=== PATIENT | female | born 1985 | race Hispanic/Latino ===

== ENCOUNTER 2016-10-31 10:02 | Inpatient (IN) ==
[2016-10-31 10:24] LABS: URINE CULTURE PL NEEDED? NO
[2016-10-31 10:31] LABS: BILIRUBIN URINE NEGATIVE (NEGATIVE); BLOOD URINE NEGATIVE (NEGATIVE); CLARITY CLEAR (CLEAR); COLOR YELLOW; GLUCOSE URINE NEGATIVE (NEGATIVE); LEUKOCYTES URINE NEGATIVE (NEGATIVE); NITRITE URINE NEGATIVE (NEGATIVE); PH URINE 6.5; PROTEIN URINE NEGATIVE (NEGATIVE); UROBILINOGEN URINE NORMAL
[2016-10-31 10:36] LABS: URINE EPITHELIAL CELLS >10 /HPF (<10); URINE SOURCE CLEAN CATCH; URINE WBC <10 /HPF (<10)
[2016-10-31] MEDS ORDERED: MORPHINE IV ONE (10:51)
[2016-10-31] MEDS ORDERED: ZOFRAN IV ONE (10:51)
[2016-10-31] MEDS ORDERED: NS 1,000 ML IV ONE (10:51)
[2016-10-31] MEDS ORDERED: DILAUDID IM ONE (10:57)
[2016-10-31] MEDS ORDERED: DILAUDID ONE (10:58)
--- NOTE | 2016-10-31 11:25 | Diag Imaging Result Doc PS360 ---
EXAM: CT RENAL STONE SEARCH - 10/31/2016 HISTORY: Abd pain TECHNIQUE: Dose reduction protocol COMPARISON: None. FINDINGS: There is no substantial hydronephrosis or perinephric edema identified. There is no renal stone identified. The bilateral renal contours are mildly lobulated which likely relates to normal variation. There is no evidence of bowel obstruction. What appears to represent the appendix has air in the lumen and shows no evidence of inflammation. There is a moderate amount retained fecal debris in the right colon. There is no free air. There are no calcified gallstones seen. There are bilateral L5 pars interarticularis defects noted. There is no associated spondylolisthesis. IMPRESSION: No evidence of renal stone or hydronephrosis. Apparent constipation noted. Bilateral L5 pars interarticularis defects also noted. Electronically signed by Se Villavicencio 10/31/2016 11:23 AM
--- NOTE | 2016-10-31 11:43 | Diag Imaging Result Doc PS360 ---
EXAM: LUMBAR SPINE - 10/31/2016 HISTORY: LBP TECHNIQUE: Lumbar spine six views COMPARISON: None. FINDINGS: There are pars interarticularis defects at L5 which are most conspicuous in the lateral projection, as seen on the CT renal stone search. There is no associated spondylolisthesis. There is no fracture or subluxation identified. There is no destructive or sclerotic lesion identified. Substantial degenerative changes do not appear to be present. There is a moderate amount retained fecal debris noted in the visualized right colon. IMPRESSION: L5 pars interarticularis defects. No associated spondylolisthesis. No other visible lumbar spine abnormality. Apparent constipation noted. Electronically signed by Se Villavicencio 10/31/2016 11:41 AM
[2016-10-31 12:05] LABS: HEMATOCRIT 20.8 % (37.0-47.0); IMM GRAN# 0.01 X1000 (0.0-0.04); IMM GRAN% 1.5 % (0.0-0.5); LYMPH# 0.56 X1000 (1.2-3.4); LYMPH% 86.2 % (20.5-51.1); MANUAL DIFF NEEDED? YES; MCH 25.6 PG (27-31); MCHC 33.7 g/dL (33-37); MCV 76.2 FL (81-99); MONO# 0.03 X1000 (0.11-0.59); MONO% 4.6 % (1.7-9.3); MPV 10.6 FL (7.4-10.4); NEUT% 7.7 % (42.2-75.2); PLT 88 X1000 (130-400); RBC 2.73 XMIL (4.2-5.4)
[2016-10-31 12:18] LABS: AGAP 12; ALKALINE PHOSPHATASE 102 U/L (32-104); AMYLASE 30 U/L (20-200); BUN 19 mg/dL (8-22); CALCIUM 8.3 mg/dL (8.8-10.2); CHLORIDE 102 mmol/L (98-107); COSMO 274; GOT 29 U/L (10-30); GPT 27 U/L (10-36); LIPASE 15 U/L (13-60); LYMPHS 94 % (21-51); POTASSIUM 3.4 mmol/L (3.5-5.1); SODIUM 136 mmol/L (136-145); TCO2 23 mmol/L (25-35); TOTAL PROTEIN 6.8 g/dL (6.3-8.3)
[2016-10-31 12:19] LABS: HYPOCHROM 2+
[2016-10-31 13:38] LABS: HEMATOCRIT 20.1 % (37.0-47.0); HEMOGLOBIN 6.7 g/dL (12.0-16.0); IMM GRAN# 0.02 X1000 (0.0-0.04); IMM GRAN% 3.4 % (0.0-0.5); LYMPH# 0.52 X1000 (1.2-3.4); LYMPH% 88.1 % (20.5-51.1); MANUAL DIFF NEEDED? NO; MCH 25.6 PG (27-31); MCHC 33.3 g/dL (33-37); MCV 76.7 FL (81-99); MONO# 0.02 X1000 (0.11-0.59); MONO% 3.4 % (1.7-9.3); MPV 11.3 FL (7.4-10.4); NEUT% 5.1 % (42.2-75.2); PLT 87 X1000 (130-400); RBC 2.62 XMIL (4.2-5.4)
--- NOTE | 2016-10-31 13:47 | PROVIDER DOCUMENTATION ---
This chart was entered by Marichuy Negron Scribe, acting as scribe for Cassandra Chavez MD. HPI-Musculoskeletal Pain/Inj - GENERAL Chief Complaint: Back Pain Stated Complaint: ABD CRAMPS Time Seen by Provider: 10/31/16 10:40 Source: patient - HX OF PRESENT ILLNESS-MUSKULOSKELTAL Nature of Presenting Problem: Patient is 31 year old female presents to the ED with low back pain. Patient states pain has been present for one month. Patient states pain worsened today. Patient denies recent injury or trauma to back. Patient states back pain radiates to bilateral legs. Quality of Pain: reports: aching Severity in ED: moderate Onset/Duration: other (1 mth) Timing: still present, getting worse Modifying Factors: improves with: nothing Any recent injury?: No Locality of Occurance: Home Similar Symptoms Previously?: Yes (present for one mth ) Recently seen or treated by another doctor?: No - BACK & NECK PAIN/INJURY Back/Neck Pain Location: reports: lumbar spine Back/Neck Pain Radiation: reports: Upper Legs (bilateral), Lower Legs (bilateral ) Context / Method of Injury: reports: unknown Associated Symptoms: reports: lower back pain. denies: loss of bladder control , loss of bowel control, fever, muscle spasms, numbness in legs/feet, numbness in upper ext, sensory/motor loss, tingling in legs/feet, tingling in upper ext, weakness in legs/feet, weakness in upper ext History of Chronic Neck or Back Pain?: No Review of Systems - Adult - REVIEW OF SYSTEMS - ADULT Constitutional: reports: no symptoms reported Eyes: reports: no symptoms reported Ears, Nose, Mouth & Throat: reports: no symptoms reported Cardiovascular: reports: no symptoms reported Respiratory: reports: no symptoms reported Gastrointestinal: reports: no symptoms reported Genitourinary: reports: no symptoms reported Musculoskeletal: reports: back pain. denies: bone pain, joint pain, neck pain Integumentary: reports: no symptoms reported Neurological: reports: no symptoms reported Psychiatric: reports: no symptoms reported Endocrine: reports: no symptoms reported Hematologic/Lymphatic: reports: no symptoms reported Allergic/Immunologic: reports: no symptoms reported All Other Systems: Reviewed and Negative Past History - Adult - PAST MEDICAL HISTORY-ADULT Review of Records: reports: Nursing Assessment Review, Medications Reviewed, Social history reviewed & non-contributory. Major Childhood Illnesses: reports: denies history Cardiovascular: reports: denies history Respiratory: reports: denies history Gastrointestinal: reports: denies history Obstetrical/Gynecological: reports: denies history Genitourinary: reports: denies history Musculoskeletal: reports: denies history Neurological: reports: denies history Endocrine/Immune: reports: denies history Other Conditions: reports: denies history - PRIOR SURGERIES/PROCEDURES Surgical/Procedure History: reports: reviewed, not pertinent - IMMUNIZATION STATUS Childhood Immunizations: See Nurse Assessment Flu Vaccine: See Nurse Assessment - FAMILY HISTORY Family History: reviewed, not pertinent - SOCIAL HISTORY Smoking: denies Substance Use: denies Living Situation: family Physical Exam-Injury Related - Physical Exam-Injury Related Initial Vital Signs Reviewed: Yes General Appearance: appears well, alert, no apparent distress. negative: lethargic, slow to respond Eyes: PERRL/EOMI, pink conjunctivae. negative: pale conjunctivae, sunken eyes Head, Ears, Nose, Mouth & Throat: normocephalic/atraumatic, moist mucous membranes, normal ENT inspection. negative: angioedema, hearing deficit Neck: non-tender, normal inspection. negative: decresed ROM, lymphadenopathy, tender lateral Respiratory: chest non-tender, lungs clear, normal breath sounds. negative: rhonchi, stridor, wheezing, increased rate Cardiovascular: normal peripheral pulses, regular rate, rhythm. negative: tachycardia, systolic murmur Abdominal Exam: normal bowel sounds, non tender, soft. negative: distended, rebound, hernia Lymphatic: no adenopathy. negative: enlargement, streaking Back Exam: no CVA tenderness, vertebral tenderness (lumbar). negative: ecchymosis Extremity: normal range of motion, normal inspection. negative: deformity, erythema, swelling, tenderness Integumentary: normal color, warm/dry. negative: ecchymosis, jaundice, pallor, swelling, tenderness, abrasion Neurologic: grossly normal. negative: aphasia, facial droop Psych/Mental Status: oriented x 3, tearful. negative: normal mood/affect, paranoid Progress - PLAN OF CARE/RESULTS Progress/Plan/Lab Results: Vital Signs - 8 hr 10/31/16 10:10 Temperature 98 F Pulse Rate 106 H Respiratory Rate 19 Blood Pressure 105/50 O2 Sat by Pulse Oximetry 97 Laboratory Results - last 24 hr 10/31/16 10/31/1617 10:15 10:15 10:59 WBC RBC Hgb Hct MCV MCH MCHC RDW Std Deviation Plt Count MPV Immature Gran % (Auto) Neut % (Auto) Lymph % (Auto) Clinch % (Auto) Eos % (Auto) Baso % (Auto) Immature Gran # (Auto) Neut # (Auto) Lymph # (Auto) Clinch # (Auto) Eos # (Auto) Baso # (Auto) Segmented Neutrophils Lymphocytes Atypical Lymphocytes Hypochromia Poikilocytosis Ovalocytes Sodium Potassium Chloride Carbon Dioxide Anion Gap BUN Creatinine Estimated GFR/1.73 m2 BUN/Creatinine Ratio Glucose POC Glucose 104 Calculated Osmolality Calcium Total Bilirubin AST ALT Alkaline Phosphatase Total Protein Albumin Globulin Albumin/Globulin Ratio Amylase Lipase Urine Source CLEAN CATCH Urine Color YELLOW Urine Clarity CLEAR Urine pH 6.5 Ur Specific [place]ander 1.010 Urine Protein NEGATIVE Urine Ketones NEGATIVE Urine Blood NEGATIVE Urine Nitrite NEGATIVE Urine Bilirubin NEGATIVE Urine Urobilinogen NORMAL Urine Microscopic RBC Not Reportable Urine WBC NEGATIVE Urine Microscopic WBC <10 Ur Epithelial Cells >10 A Urine Bacteria 1+ Urine Glucose NEGATIVE Urine Test NEGATIVE 10/31/16 10/31/16 10/31/16 11:45 11:45 12:58 WBC 0.65 L 0.59 L RBC 2.73 L 2.62 L Hgb 7.0 L 6.7 L Hct 20.8 L 20.1 L MCV 76.2 L 76.7 L MCH 25.6 L 25.6 L MCHC 33.7 33.3 RDW Std Deviation 13.8 13.8 Plt Count 88 L 87 L MPV 10.6 H 11.3 H Immature Gran % (Auto) 1.5 H 3.4 H Neut % (Auto) 7.7 L 5.1 L Lymph % (Auto) 86.2 H 88.1 H Clinch % (Auto) 4.6 3.4 Eos % (Auto) 0.0 0.0 Baso % (Auto) 0.0 0.0 Immature Gran # (Auto) 0.01 0.02 Neut # (Auto) 0.05 L* 0.03 L* Lymph # (Auto) 0.56 L 0.52 L Clinch # (Auto) 0.03 L 0.02 L Eos # (Auto) 0.00 0.00 Baso # (Auto) 0.00 0.00 Segmented Neutrophils 2 L Lymphocytes 94 H Atypical Lymphocytes 4.0 Hypochromia 2+ Poikilocytosis 1+ Ovalocytes 1+ Sodium 136 Potassium 3.4 L Chloride 102 Carbon Dioxide 23 L Anion Gap 12 BUN 19 Creatinine 0.5 Estimated GFR/1.73 m2 > 60 BUN/Creatinine Ratio 38 Glucose 102 POC Glucose Calculated Osmolality 274 Calcium 8.3 L Total Bilirubin 0.40 AST 29 ALT 27 Alkaline Phosphatase 102 Total Protein 6.8 Albumin 4.0 Globulin 3.0 Albumin/Globulin Ratio 1.0 Amylase 30 Lipase 15 Urine Source Urine Color Urine Clarity Urine pH Ur Specific Leander Urine Protein Urine Ketones Urine Blood Urine Nitrite Urine Bilirubin Urine Urobilinogen Urine Microscopic RBC Urine WBC Urine Microscopic WBC Ur Epithelial Cells Urine Bacteria Urine Glucose Urine Test Orders Category Date Time Status Saline Loc DIRECTED Care 10/31/16 10:51 Active NPO Diet 10/31/16 10:[address] RENAL STONE SEARCH [CT] Stat Exams 10/31/16 10:51 Completed LUMBAR SPINE [RAD] Stat Exams 10/31/16 10:53 Completed AMYLASE [CHEM] Stat Lab 10/31/16 11:45 Completed CBC WITH DIFF [HEME] Stat Lab 10/31/16 12:58 Completed CBC WITH ELECTRONIC DIFF [HEME] Stat Lab 10/31/16 11:45 Completed COMPREHENSIVE METABOLIC PANEL [CHEM] Stat Lab 10/31/16 11:45 Completed LIPASE [CHEM] Stat Lab 10/31/16 11:45 Completed TEST-URINE [PREG] Stat Lab 10/31/16 10:[address] W/POSS RFLX CULT [URINALYSIS] Stat Lab 10/31/16 10:15 Completed 0.9% Sodium Chloride Inj [Ns] 1,000 ml Med 10/31/16 10:51 Discontinued IV 999 mls/hr Hydromorphone [Dilaudid] Med 10/31/16 10:58 Discontinued 1 mg .ROUTE .STK-MED ONE Hydromorphone [Dilaudid] Med 10/31/16 10:57 Discontinued 1 mg IM NOW ONE Morphine Med 10/31/16 10:51 Discontinued 4 mg IV NOW ONE Ondansetron [Zofran] Med 10/31/16 10:51 Discontinued 4 mg IV NOW ONE Result Diagrams: 10/31/16 12:58 10/31/16 11:45 - XRAY 1 XRAY Study: Lumbar Spine Impression: Abnormal (L5 pars interarticularis defects. no associated spondylolisthesis. No other visible lumbar spine abnormality. apparent constipation noted.) - CT/MRI 1 CT Study: Renal Stone Impression: Normal (no evidence of renal stone or hydronephrosis.) - CONSULTS/PCP/HOSPITALIST Notification #1 *Consult/PCP/Hospitalist*: Dr. Danielson Time Discussed: 13:42 Reason/Comments: Dr. Chavez consults with Dr. Danielson about Pt Consult Disposition: Admit Departure - Departure Date of Disposition Decision: 10/31/16 Time of Disposition Decision: 13:43 DIAGNOSIS: Pancytopenia, Lower back pain Disposition: HOME 01 Certified Medical Emergency: Emergent Condition: Fair Referrals and Follow-Ups: None,PCP [Primary Care Provider] - - Critical Care Note This patient required my direct & personal management of CC.: No Attestation - Physician/ ELSA Attestation Patient care was provided by Advanced Practice Provider:: No The physician spent face to face time with patient:: Yes Advanced Practice Provider documentation review:: Supervising physician onsite and consulted in the evaluation and care of this patient. The physician did have a face to face encounter with the patient. This chart was documented by the indicated scribe, (Marichuy Negron Scribe) and accurately reflects the services I performed and decisions made by me, Cassandra Chavez MD, as attested by the provider's signature.
--- NOTE | 2016-10-31 13:53 | EKG Report ---
Test Performed on : 10/31/2016 1:43:45 PM Test Reason : No Order in [facility] Blood Pressure : / mmHG Vent. Rate : 107 BPM Atrial Rate : 107 BPM P-R Int : 142 ms QRS Dur : 078 ms QT Int : 350 ms P-R-T Axes : 025 011 011 degrees QTc Int : 467 ms Sinus tachycardia. Otherwise normal ECG No previous ECGs available Unconfirmed Result
--- NOTE | 2016-10-31 14:26 | ED EKG INTERP ---
This chart was entered by Mraichuy Negron Scribe, acting as scribe for Cassandra Chavez MD. EKG Interpretation - EKG Time of EKG reading by physician:: 13:43 EKG Read and Signed by:: Cassandra Chavez EKG Interpretation (*Must complete 3 of following elements*): Abnormal Rate: 107 Rhythm: sinus tachycardia Comments: otherwise normal ECG Attestation - Physician/ ELSA Attestation Patient care was provided by Advanced Practice Provider:: No The physician spent face to face time with patient:: Yes Advanced Practice Provider documentation review:: Supervising physician onsite and consulted in the evaluation and care of this patient. The physician did have a face to face encounter with the patient. This chart was documented by the indicated scribe, (Marichuy Negron Scribe) and accurately reflects the services I performed and decisions made by me, Cassandra Chavez MD, as attested by the provider's signature.
[2016-10-31] MEDS ORDERED: LASIX IV SCH (14:45)
[2016-10-31] MEDS ORDERED: KLOR-CON PO ONE (14:52)
[2016-10-31] MEDS: NS 1,000 ML IV SCH (15:00)
[2016-10-31] MEDS ORDERED: MORPHINE ONE (16:22)
[2016-10-31] MEDS: ZOFRAN IV PRN (16:28)
--- NOTE | 2016-10-31 18:38 | HISTORY AND PHYSICAL ---
CHIEF COMPLAINT: Back pain. HISTORY OF PRESENT ILLNESS: This is a 31-year-old, female who presented to the emergency room by private vehicle with family members complaining of low back pain. Of note, there is a language deficit. History is taken from the patient with assistance of language line as well as family members in the room. The patient complains of pain that starts just below her waist in the back and it radiates down to her buttocks. At one time she stated that the pain radiated down both legs. When talking to language smitha, she stated that the pain as stopped at her buttocks. There is a varying timeline with the patient's family members stating this pain has been present for a month but the patient stated that 2 months ago she had to quit her job because of this pain. She has not given us an exact time that this pain started. She does describe the pain as a cramping pain that was intermittent up until the last few days. It has become constant through the night and this morning prior to coming the emergency room the pain was 10/10 unbearable. Anytime she is asked about the pain she just points to her low back and buttocks. She did state that at the worst pain she did have a decreased sensation to her legs that felt like pins and needles. She denies any dysuria, hematuria, fevers, chills or constipation although she is constipated on CT scan. PAST MEDICAL HISTORY: Denies other than back pain. PAST SURGICAL HISTORY: Denies. SOCIAL HISTORY: Denies alcohol, tobacco, or illicit drug use. ALLERGIES: Denies. HOME MEDICATIONS: Denies. REVIEW OF SYSTEMS: Pertinent positives as stated in the HPI. She denied chest pain, palpitations, dizziness, syncope, shortness of breath, fever, chills, nausea, vomiting, diarrhea, constipation, black or bloody vomitus, black or bloody stools. Increase in vaginal bleeding stating periods have not been heavy. DIAGNOSTICS/LABS: WBC is 0.65, with a hemoglobin of 6.7, hematocrit 20.1, and platelets of 87,000. Chemistry: Sodium is 136, potassium 3.4, BUN 19, creatinine 0.5, glucose of 102. Urinalysis is essentially negative. Lumbar spine x-ray revealed an L5 pars interarticularis defect with no associated spondylolisthesis. No other visible lumbar spine abnormality. A moderate amount of retained fecal debris noted in the right colon. Renal CT revealed apparent constipation with bilateral L5 pars interarticularis defects noted. No evidence of renal stone or hydronephrosis. No evidence of bowel obstruction. What appears to represent the appendix has air in the lumen that shows no evidence of inflammation. No free air. No gallstones. ASSESSMENT: This is a 31-year-old, female who is sitting up in the bed, very stoic, slow to answer questions. 1. Low back pain. 2. Pancytopenia. 3. Constipation. 4. Lumbar back pain with L5 pars interarticularis defects with no associated spondylolisthesis. PLAN: She will be admitted to [facility]. We will consult Dr. Cavazos in Oncology/Hematology. We type and cross 3 units of packed cells. We will give 2 with Lasix in between the 1st and 2nd unit. We will trend her labs. We will Hemoccult and Gastroccult all stool and vomitus. Give Protonix IV with bowel regimen of Dulcolax suppository scheduled b.i.d. and lactulose b.i.d. We will replete her potassium. For DVT prophylaxis we will use SCDs and GI prophylaxis Protonix. Dictated by VIKAS Garcia for Alban Danielson MD cc: VIKAS Garcia MD
[2016-10-31] MEDS: DULCOLAX PR SCH (23:53)
[2016-10-31] MEDS: LACTULOSE PO SCH (23:53)
[2016-11-01] MEDS: SODIUM CHLORIDE 0.9% INJ SCH (03:02)
[2016-11-01] MEDS: PROTONIX IV SCH ×3 (03:02→17:11)
[2016-11-01] MEDS ORDERED: KLOR-CON PO ONE (03:30)
[2016-11-01] MEDS: DULCOLAX PR SCH ×2 (04:11→10:35)
[2016-11-01] MEDS: LACTULOSE PO SCH ×2 (04:12→10:35)
[2016-11-01 05:49] LABS: HEMATOCRIT 27.8 % (37.0-47.0); HEMOGLOBIN 9.7 g/dL (12.0-16.0); LYMPH# 1.12 X1000 (1.2-3.4); LYMPH% 91.1 % (20.5-51.1); MANUAL DIFF NEEDED? YES; MCH 26.9 PG (27-31); MCHC 34.9 g/dL (33-37); MONO# 0.03 X1000 (0.11-0.59); MONO% 2.4 % (1.7-9.3); MPV 11.3 FL (7.4-10.4); NEUT% 6.5 % (42.2-75.2); PLT 81 X1000 (130-400); RBC 3.61 XMIL (4.2-5.4)
[2016-11-01 06:04] LABS: AGAP 13; ALBUMIN 3.4 g/dL (3.5-5.0); ALKALINE PHOSPHATASE 95 U/L (32-104); BUN 12 mg/dL (8-22); CALCIUM 7.9 mg/dL (8.8-10.2); CHLORIDE 106 mmol/L (98-107); COSMO 285; GOT 31 U/L (10-30); GPT 23 U/L (10-36); POTASSIUM 3.8 mmol/L (3.5-5.1); SODIUM 143 mmol/L (136-145); TCO2 24 mmol/L (25-35); TOTAL BILIRUBIN 0.72 mg/dL (0.20-1.00); TOTAL PROTEIN 6.1 g/dL (6.3-8.3)
[2016-11-01 07:14] LABS: LYMPHS 88 % (21-51)
[2016-11-01] MEDS: NS 1,000 ML IV SCH ×2 (10:40→17:09)
--- NOTE | 2016-11-01 13:55 | PROGRESS NOTE ---
DATE: 11/01/2016 SUBJECTIVE: This patient states that she is feeling better. Her back pain improved. She has no specific complaints today. Since she has pancytopenia I have contacted Dr. Cavazos. He has evaluated the patient and the plan is to go ahead and get a bone marrow biopsy tomorrow. OBJECTIVE: Vital Signs: Temperature 98.1 degrees, pulse 84, respiratory rate 18, blood pressure 119/54, oxygen saturation 96 on room air. HEENT: Head normocephalic. No trauma. PERRLA. Neck: Supple. No JVD. No masses. Central trachea. Skin: Pale. Chest: Clear to auscultation. No wheezing. No rales. Abdomen: Soft, nontender, nondistended. No hepatosplenomegaly. Obese. Extremities: No edema. No clubbing. No cyanosis. Neurological: The patient is alert and oriented x3. No focal deficits. LABORATORY: WBC 1.2, hemoglobin 9.7, hematocrit 27.8, platelets 81,000. Sodium 143, potassium 3.8, chloride 106, bicarbonate 24, BUN 12, creatinine 0.5, glucose 95, calcium 7.9, albumin 3.4. ASSESSMENT AND PLAN: 1. Pancytopenia. Hematology Oncology evaluated this patient. She will have a bone marrow biopsy tomorrow. She already received 3 PRBCs. We will continue to monitor the hemoglobin and hematocrit. 2. Low back pain. X-ray done at the level of the lumbar spine showed L5 pars interarticularis defect with no associated spondylolysis or spine abnormality. If this pain is recurrent probably we will need to get a CT scan. 3. Constipation. Continue with the same management. cc: Constantino Gaspar MD
[2016-11-01 14:25] LABS: VITAMIN D 25 HYDROXY 12.9 NG/DL
[2016-11-02] MEDS: DULCOLAX PR SCH (00:49)
[2016-11-02] MEDS: LACTULOSE PO SCH (00:51)
[2016-11-02 07:47] LABS: INR 0.99; PROTIME 10.4 Seconds (9.2-11.7); PTT 27.5 Seconds (22.0-36.0)
[2016-11-02 07:48] LABS: EOS# 0.01 X1000 (0.0-0.7); EOS% 0.7 % (0.0-10.0); HEMATOCRIT 29.1 % (37.0-47.0); LYMPH% 91.5 % (20.5-51.1); MANUAL DIFF NEEDED? YES; MCH 26.5 PG (27-31); MCHC 34.4 g/dL (33-37); MCV 77.2 FL (81-99); MONO# 0.01 X1000 (0.11-0.59); MONO% 0.7 % (1.7-9.3); NEUT% 7.1 % (42.2-75.2); PLT 83 X1000 (130-400); RBC 3.77 XMIL (4.2-5.4)
[2016-11-02 07:55] LABS: AGAP 11; BUN 9 mg/dL (8-22); CALCIUM 7.6 mg/dL (8.8-10.2); CHLORIDE 106 mmol/L (98-107); COSMO 278; POTASSIUM 3.5 mmol/L (3.5-5.1); SODIUM 140 mmol/L (136-145); TCO2 23 mmol/L (25-35)
[2016-11-02 08:00] LABS: IRON SATURATION 76 %; TIBC 242 ug/dL; TOTAL IRON 184 ug/dL (49-151); UNBOUND IRON 58 ug/dL (112-346)
[2016-11-02 08:13] LABS: LYMPHS 90 % (21-51)
[2016-11-02] MEDS ORDERED: SENSORCAINE-MPF 0.5%/EPI 1:200,000 ONE (08:26)
[2016-11-02] MEDS ORDERED: DIPRIVAN 1% ONE ×2 (08:33→10:06)
[2016-11-02] MEDS ORDERED: FENTANYL ONE (08:34)
[2016-11-02] MEDS ORDERED: MARCAINE 0.5% PF ONE (09:45)
[2016-11-02] MEDS ORDERED: MORPHINE IV PRN (11:59)
[2016-11-02] MEDS: PROTONIX IV SCH ×2 (12:00→21:23)
[2016-11-02] MEDS: SODIUM CHLORIDE 0.9% INJ SCH (12:00)
--- NOTE | 2016-11-02 16:49 | PROGRESS NOTE ---
DATE: 11/02/2016 SUBJECTIVE: This patient is feeling fine. She had today a bone marrow biopsy and she is complaining about pain in that area, otherwise, she is stable. OBJECTIVE: Vital Signs: Temperature 98.3 degrees, pulse 71, respiratory rate 18, blood pressure 123/64, oxygen saturation 100% on room air. HEENT: Head normocephalic. No trauma. PERRLA. Neck: Supple. No JVD. No masses. Central trachea. Chest: Clear to auscultation. No wheezing. No rales. Abdomen: Soft, nontender, nondistended. No hepatosplenomegaly. Extremities: No edema. No clubbing. No cyanosis. Neurological: The patient is alert and oriented x3. No focal deficits. LABORATORY: WBC 1.4, hemoglobin 10, hematocrit 29.1, platelets 83,000, sodium 140, potassium 3.5, chloride 106, bicarbonate 23, BUN 9, creatinine 0.5, glucose 91, calcium 7.6. ASSESSMENT AND PLAN: 1. Pancytopenia, Hematology/Oncology evaluated this patient, a bone marrow biopsy has been done today, pending Pathology report. She is status post 3 PRBCs, continue to monitor the hemoglobin and hematocrit. 2. Low back pain. X-ray done at the level of the lumbar spine showed L5 pars interarticularis defect with no associated a spondylolysis or spine abnormality. If this pain is recurrent, probably we will need to get a CT scan or MRI. 3. Constipation. Continue with the same management. cc: Constantino Gaspar MD
[2016-11-02] MEDS: ZOFRAN IV PRN (21:23)
[2016-11-03 07:30] LABS: HEMATOCRIT 28.7 % (37.0-47.0); HEMOGLOBIN 9.9 g/dL (12.0-16.0); LYMPH# 1.16 X1000 (1.2-3.4); LYMPH% 89.2 % (20.5-51.1); MANUAL DIFF NEEDED? YES; MCH 26.6 PG (27-31); MCHC 34.5 g/dL (33-37); MCV 77.2 FL (81-99); MONO# 0.01 X1000 (0.11-0.59); MONO% 0.8 % (1.7-9.3); MPV 11.5 FL (7.4-10.4); PLT 86 X1000 (130-400); RBC 3.72 XMIL (4.2-5.4)
[2016-11-03 07:35] LABS: AGAP 14; ALBUMIN 3.8 g/dL (3.5-5.0); ALKALINE PHOSPHATASE 92 U/L (32-104); BUN 13 mg/dL (8-22); CALCIUM 8.4 mg/dL (8.8-10.2); CHLORIDE 104 mmol/L (98-107); COSMO 281; GOT 17 U/L (10-30); GPT 25 U/L (10-36); POTASSIUM 3.4 mmol/L (3.5-5.1); SODIUM 141 mmol/L (136-145); TCO2 23 mmol/L (25-35); TOTAL BILIRUBIN 0.36 mg/dL (0.20-1.00); TOTAL PROTEIN 6.5 g/dL (6.3-8.3)
[2016-11-03] MEDS ORDERED: KLOR-CON PO ONE (07:41)
[2016-11-03 08:13] LABS: LYMPHS 88 % (21-51)
[2016-11-03] MEDS: SODIUM CHLORIDE 0.9% INJ SCH (11:27)
[2016-11-03] MEDS: PROTONIX IV SCH ×2 (11:27→22:47)
--- NOTE | 2016-11-03 13:44 | PROGRESS NOTE ---
DATE: 11/03/2016 SUBJECTIVE: This patient is feeling better. She is not complaining about back pain anymore. Bone marrow biopsy was done yesterday. She is not complaining of pain. Stable. OBJECTIVE: Vital Signs: Temperature 98.4 degrees, pulse 79, respiratory rate 20, blood pressure 103/63. Oxygen saturation 100% on room air. HEENT: Head normocephalic. No trauma. PERRLA. Neck: Supple. No JVD. No masses. Central trachea. Chest: Clear to auscultation. No wheezing. No rales. Abdomen: Soft, nontender, nondistended. No hepatosplenomegaly. Extremities: No edema. No clubbing. No cyanosis. Neurological: This patient is alert and oriented x3. No focal neurological deficits. LABORATORY STUDIES: WBC 1.3, hemoglobin 9.9, hematocrit 28.7, platelets 86. Sodium 141, potassium 3.4, chloride 104, bicarbonate 23, BUN 13, creatinine 0.6, glucose 88, calcium 8.4. ASSESSMENT AND PLAN: 1. Pancytopenia. Hematology/Oncology is following this patient. Yesterday, this patient had a bone marrow biopsy done, pending pathology report. This is likely related to lymphoma or leukemia, but like I said, the pathology report is pending. She is status post 3 PRBCs. Hemoglobin has been stable. 2. Low back pain. X-ray done at the level of the lumbar spine showed L5 pars interarticularis defect, with no associated spondylolysis or spine deformity. If this pain is recurrent, probably we will need to get a CT scan or MRI of the lumbar area. 3. Constipation. Continue with the same management. This is better. cc: Constantino Gaspar MD
[2016-11-03 14:44] LABS: FLOW CYTOMETERY SOURCE WHOLE BLOOD; LEUKEMIA LYMPHOMA BY FLOW REFERRED FOR TESTING
[2016-11-04 05:12] VITALS: BP 100/56
[2016-11-04 06:29] LABS: AGAP 12; BUN 16 mg/dL (8-22); CALCIUM 8.7 mg/dL (8.8-10.2); CHLORIDE 104 mmol/L (98-107); COSMO 282; POTASSIUM 4.1 mmol/L (3.5-5.1); SODIUM 141 mmol/L (136-145); TCO2 25 mmol/L (25-35)
[2016-11-04 06:37] LABS: HEMATOCRIT 30.7 % (37.0-47.0); HEMOGLOBIN 10.8 g/dL (12.0-16.0); LYMPH% 88.4 % (20.5-51.1); MANUAL DIFF NEEDED? YES; MCHC 35.2 g/dL (33-37); MCV 76.8 FL (81-99); MONO# 0.01 X1000 (0.11-0.59); MONO% 0.6 % (1.7-9.3); MPV 11.3 FL (7.4-10.4); PLT 96 X1000 (130-400)
[2016-11-04 07:03] LABS: BANDS 2 % (0-1); LYMPHS 90 % (21-51)
[2016-11-04] MEDS: SODIUM CHLORIDE 0.9% INJ SCH (09:41)
[2016-11-04] MEDS: PROTONIX IV SCH (09:41)
--- NOTE | 2016-11-04 16:11 | CONSULTATION ---
DATE OF CONSULTATION: 11/01/2016 ADMITTING PHYSICIAN: Dr. Danielson. REQUESTING PHYSICIAN: Dr. Danielson. We appreciate this consult. CHIEF COMPLAINT: Pancytopenia. HISTORY OF PRESENT ILLNESS: Ms. Thompson is a very pleasant 31-year-old, female, who presented to [facility] Emergency Department with complaints of low back pain. Of note, the patient does not speak Icelandic. Therefore history is obtained from the chart. The patient complained of pain below her waist in the back that radiated down her buttocks. Upon presentation to [facility] the patient was found to have significant pancytopenia with a white blood cell count of 0.59, hemoglobin 6.7, hematocrit 20.1, and platelet count of 87,000. ANC was 0.03. Dr. Cavazos is consulted regarding pancytopenia. PAST MEDICAL HISTORY: None. PAST SURGICAL HISTORY: None. SOCIAL HISTORY: The patient does not use tobacco, alcohol or illicit drugs. FAMILY HISTORY: Negative for any hematologic or oncologic problem. MEDICATIONS ON ADMISSION: None. ALLERGIES: None. REVIEW OF SYSTEMS: Fourteen point review of systems was obtained and is negative except as mentioned in HPI. PHYSICAL EXAM: Ms. Thompson is a pleasant 31-year-old, female, who is lying supine in bed in no immediate distress.HEENT: Normocephalic, atraumatic. Mucous membranes are pale and moist. Sclerae is anicteric. Extraocular movements intact. Neck: Supple. Lungs: Clear to auscultation bilaterally. Chest expansion is equal bilaterally. CV: S1, S2 is heard without murmur, rub or gallop. Abdomen: Soft, nondistended, nontender. Bowel sounds are positive in all quadrants. No rebound or guarding noted. Extremities: Without clubbing, cyanosis, or edema. Dermatologic: No rashes, bruises or lesions. Neurologic: The patient is awake, alert, and oriented x3. She has no focal motor deficit at this time. LABORATORY DATA: Hemoglobin 9.7, hematocrit 27.8. White blood cell count 1.23, platelets 81,000. Calcium 7.9, ANC 0.08. Sodium 143, potassium 3.8, chloride 106, CO2 is 24, BUN 12, creatinine 0.5 and glucose is 95. Fecal occult blood test is negative. IMAGING STUDIES: Renal CT is negative for any acute abnormality. ASSESSMENT AND PLAN: 1. Pancytopenia of questionable etiology in a patient who presented to [facility] Emergency Department with complaints of back pain. The patient has no significant medical history. At this time we will check a vitamin D, folic acid, vitamin B12, SPEP, TSH, CANDELARIO, bone marrow biopsy will be obtained. We will initiate reverse isolation at this time. 2. Lumbar pain with L5 pars interarticularis defects. 3. Constipation, per hospitalist. 4. We will follow along with you and make further recommendations pending outcomes. Dictated by VIKAS Burgos for Tomi Cavazos MD cc: VIKAS Burgos MD
--- NOTE | 2016-11-05 09:21 | DISCHARGE SUMMARY ---
ADMISSION DATE: 10/31/2016 DISCHARGE DATE: 11/04/2016 CONSULTATIONS: None. PERTINENT PROCEDURES: 1. Renal CT showed no evidence of renal stone or hydronephrosis. 2. Bilateral L5 pars interarticularis effects noted. No associated spondylolisthesis. 3. Bone marrow biopsy still pending performed on 11/02/2016. DISCHARGE DIAGNOSES: 1. Pancytopenia followed by Dr. Cavazos, status post bone marrow biopsy. Pathology is still pending, possibly secondary to lymphoma or leukemia, status post 3 units of packed red blood cells. Hemoglobin and hematocrit has been stable. 2. Low back pain. X-ray at the level of the lumbar spine showed L5 pars interarticularis defect, but no associated spondylosis or spine deformity. Pain is recurrent. Question CT or MRI in the near future on an outpatient basis. HOSPITAL COURSE: Ms. Thompson is a 31-year-old, female, who presented to the ED complaining of low back pain. She has no prior past medical history, there was a language deficit. History was taken from the patient with the assistance of the language line, as well as family members in the room. The patient complains of pain that starts just below her waist in the back and radiates down to her buttocks and into both legs. There is a varying timeline, with the patient's family member stating that the pain has been present for a month, but the patient stated that 2 months ago, she had to quit her job because of the pain. She had not given the exact time that the pain started. She described it as cramping and intermittent up until the last few days where it had become constant through the night and through the morning. Prior to coming to the ED, her pain was a 10/10, unbearable. Anytime she is asked about pain she just points to her low back and buttocks. She did state that at the worst pain, she did have decreased sensation to her legs that felt like pins and needles. She was initially admitted for low back pain, pancytopenia, constipation. The lumbar spine revealed an L5 pars interarticularis defect with no associated spondylosis. No other visible lumbar spine abnormality, with a moderate amount of retained fecal debris noted in the right colon. She was admitted with a consult for Oncology/ Hematology. She was typed and crossed for 3 units of PRBCs, and given Lasix in between the 1st and 2nd dose. Trended her labs, and started on a bowel regimen and repleted her potassium. She also underwent a bone marrow biopsy. Those results are still pending. She is being discharged home today and will follow up with Dr. Cavazos next Monday. VITAL SIGNS: At the time of discharge: Temperature is 98.3 degrees, heart rate 81, respirations 15, blood pressure 100/56, O2 is 97% on room air. DISCHARGE DIET: GI soft. DISCHARGE MEDICATIONS: As per Dr. Meza, none. FOLLOWUP: Ms. Thompson is being discharged home with family. She is to follow up with Dr. Cavazos on 11/08/2016 at 13:50. She will return to the ED for any worsening of symptoms. I personally performed a face to face evaluation on this patient, also I review laboratory work and images, she has a suspicious pancytopenia for malignancy, pending biopsy results, I agree with the assessment and treatment for discharge, Constantino Hines MD. Dictated by VIKAS Saul for Constantino Gaspar MD cc: Constantino Gaspar MD MTDD
== END 2016-11-04 13:40 | disposition home or self-care (01) ==
LOC: P.ED 10:02 → 3N 19:00 → SUATTDRO 19:00
PROVIDERS: ATTEND Internal Medicine